=== PATIENT | female | born 1990 | race Caucasian/White ===

== ENCOUNTER 2020-12-07 01:05 | Emergency (ER) | payer MEDICAID ==
[~2020-12-07] VITALS: Ht 170.2 cm; Wt 61.4 kg
[~2020-12-07 01:05] MED LIST: CRAN450T9 PO; HYDR-3965 PO; PREN-84 PO; ZOF4T PO
[2020-12-07 01:07] VITALS: BP 149/97
== END 2020-12-07 02:02 | disposition home or self-care (01) ==
LOC: ER 01:06
DX: M25.531 Pain in right wrist (principal); R22.31 Localized swelling, mass and lump, right upper limb; Z72.89 Other problems related to lifestyle; Z87.440 Personal history of urinary (tract) infections; Z87.442 Personal history of urinary calculi; Z88.0 Allergy status to penicillin; Z88.2 Allergy status to sulfonamides; Z88.1 Allergy status to other antibiotic agents; Z79.899 Other long term (current) drug therapy
CPT/HCPCS: 99283